=== PATIENT | female | born 1955 | race Caucasian/White ===

== ENCOUNTER 2020-05-04 23:03 | Emergency (ER) | payer OTHER, SELFPAY ==
[~2020-05-04] VITALS: Ht 154.9 cm; Wt 77.1 kg
[2020-05-04 23:04] VITALS: Ht 154.9 cm; Wt 77.1 kg
[2020-05-04 23:33] VITALS: BP 176/93
== END 2020-05-04 23:33 | disposition home or self-care (01) ==
LOC: ED 23:03
DX: J02.8 Acute pharyngitis due to other specified organisms (principal); Z20.828 Contact with and (suspected) exposure to other viral communicable diseases; Z88.5 Allergy status to narcotic agent
CPT/HCPCS: J1100; U0003-CS